=== PATIENT | female | born 1970 | race Caucasian/White ===

== ENCOUNTER 2017-02-18 16:57 | Emergency (ER) | payer OTHER | END 2017-02-18 20:20 | disposition home or self-care (01) | LOC: ER1 16:57 | DX: Z53.21 Procedure and treatment not carried out due to patient leaving prior to being seen by health care provider (principal) ==

== ENCOUNTER → 2017-02-27 | Outpatient (CLI) | payer OTHER | LOC: LAB 12:26 | DX: R10.9 Unspecified abdominal pain (principal); R07.9 Chest pain, unspecified | CPT/HCPCS: 36415; 93005 ==

== ENCOUNTER 2022-06-03 09:23 | Emergency (ER) | payer OTHER ==
[~2022-06-03 09:23] MED LIST: ZOVIRAX 800 MG800 MG PO
[2022-06-03 10:45] LABS: HEMOGLOBIN 14.2 gm/dl (12.3-15.3); RED BLOOD COUNT 4.59 M/UL (4.00-5.10); WHITE BLOOD COUNT 2.9 K/UL (4.5-11.0)
[2022-06-03 11:28] LABS: BUN/CREATININE RATIO 8 (0-10)
[2022-06-03] MEDS ORDERED: ZOFRAN ODT 4 MG4 MG PO (12:47)
== END 2022-06-03 13:27 | disposition home or self-care (01) ==
LOC: ER1 09:23
PROVIDERS: Physician Assistant
DX: U07.1 COVID-19 (principal); E87.6 Hypokalemia; Z90.49 Acquired absence of other specified parts of digestive tract; F17.210 Nicotine dependence, cigarettes, uncomplicated
CPT/HCPCS: 0240U; 71045; 80053; 82550; 82553; 84484; 85025; 93005; 96374; 96375; 99284; J1885; J2405; M0222